=== PATIENT | male | born 1995 ===

== ENCOUNTER 2017-11-01 04:51 | Observation (INO) | payer OTHER ==
[2017-11-01] MEDS ORDERED: Albuterol 0.083% Inhal Sol (2.5 mg/3 mL) UD INH ONE ×2 (05:46→07:14)
--- NOTE | 2017-11-01 05:52 | ED PDOC ---
HPI: SOB/CHF/COPD Time Seen by Provider: 11/01/17 05:02 Chief Complaint (Nursing): Chest Pain Chief Complaint (Provider): Shortness of Breath History Per: Patient History/Exam Limitations: no limitations Onset/Duration Of Symptoms: Days (x1) Current Symptoms Are (Timing): Still Present Current Respiratory Medications: See Home Med List Additional Complaint(s): 22 year old male presents to ED with complaints of SOB and chest tightness x1 day and has a past medical history of asthma. (+) sore throat and productive cough with yellow phlegm. (-) fever. PCP: None Past Medical History Reviewed: Historical Data, Nursing Documentation, Vital Signs Vital Signs: Last Vital Signs Temp 98.3 F 11/02/17 08:19 Pulse 58 L 11/02/17 09:00 Resp 18 11/02/17 08:19 BP 152/76 H 11/02/17 08:19 Pulse Ox 98 11/02/17 08:19 - Medical History PMH: Asthma Denies: No Chronic Diseases - Surgical History Surgical History: Tonsillectomy - Family History Family History: States: Unknown Family Hx - Living Arrangements Living Arrangements: With Family - Social History Current smoker - smoking cessation education provided: No Ex-Smoker (has not smoked in the last 12 months): No Alcohol: Social Drugs: Cannabis - Home Medications Home Medications: Ambulatory Orders Medication Instructions Recorded Albuterol HFA [Ventolin HFA 90 1 puff IH Q4 PRN #1 inhaler 11/02/17 mcg/actuation (8 g)] Amoxicillin/Clavulanate [Augmentin 1 tab PO Q12 #14 tab 11/02/17 875 MG-125 MG Tab] Benzocaine/Menthol [Cepacol Sore 1 dalila PO Q3 PRN #30 dalila 11/02/17 Throat] Fluticasone/Salmeterol 250/50 1 puff IH Q12 #60 puff 11/02/17 [Advair Diskus 250/50] Methylprednisolone [Medrol Dose 4 mg PO DAILY #21 mg 11/02/17 Pack (21 tabs)] - Allergies Allergies/Adverse Reactions: Allergies Allergy/AdvReac Type Severity Reaction Status Date / Time No Known Allergies Allergy Verified 11/01/17 07:16 Curb-65 Severity Score - CURB-65 Severity Score Confusion: No Respiratory Rate greater than/equal to 30: No Systolic BP <90 or Diastolic BP less than/equal 60mmHg: No Age >64: No Curb-65 Score: 0 Percentage 30-day mortality: 0.6% Wells Criteria for PE - Wells Criteria for Pulmonary Embolism P.E is #1 Diagnosis, or Equally Likely: No Heart Rate >100: No Immobilization at least 3 days;Surgery previous 4 weeks: No Previous, objectively diagnosed PE or DVT: No Hemoptysis: No Malignancy w/treatment within 6 months, or palliative: No Total Score: 0 Review of Systems ROS Statement: Except As Marked, All Systems Reviewed And Found Negative Constitutional: Negative for: Fever ENT: Positive for: Throat Pain Cardiovascular: Positive for: Chest Pain ("chest tightness") Respiratory: Positive for: Cough, Shortness of Breath, Sputum (yellow phlegm) Physical Exam - Reviewed Nursing Documentation Reviewed: Yes Vital Signs Reviewed: Yes - Physical Exam Appears: Positive for: Non-toxic, No Acute Distress (obese) Skin: Positive for: Normal Color, Warm, Dry ENT: Positive for: Pharyngeal Erythema (mild). Negative for: Normal ENT Inspection Cardiovascular/Chest: Positive for: Regular Rate, Rhythm, Bradycardia Respiratory: Positive for: Normal Breath Sounds. Negative for: Wheezing, Respiratory Distress Gastrointestinal/Abdominal: Positive for: Normal Exam Extremity: Positive for: Normal ROM Neurologic/Psych: Positive for: Alert, Oriented. Negative for: Motor/Sensory Deficits - Laboratory Results Result Diagrams: 11/01/17 05:50 11/01/17 05:50 - ECG ECG Rhythm: Positive for: Normal QRS, Normal ST Segment, Sinus Bradycardia Rate: 45 O2 Sat by Pulse Oximetry: 99 (RA) Pulse Ox Interpretation: Normal - Radiology X-Ray: Interpreted by Me, Viewed By Pa X-Ray Interpretation: No Acute Disease Medical Decision Making Medical Decision Makin Initial impression: chest pain sore throat r/o strep r/o PNA r/o cardiac Initial plan: * Labs * Trop I * CXR * Albuterol 0.083% 2.5mg INH * Peak flow pre/post Tx * Rapid strep * Re-eval (-) Group A Beta Strep Ag CXR Reveals no infiltrates. Troponin level is normal. Nebulizer treatment ordered. Pt is bradycardiac. Pt is persistently 45 beats/min. no prior histort. Plan to admit patient for bradycardia and chest pain. pt awake and alert. in no distress. 07:12 ED provider discussed case with Dr. Drake. Patient will be admitted to observation /telemetry for chest pain and bradycardia under the care of Dr. Juliana Drake ~~~~~~~~~~~~~~~~~~~~~~~~~~~~~~~~~~~~~~~~~~~~~~~~~~~~~~~~~~~~~~~~~~~~~~~~~~~ Scribe Attestation: Documented by Bridgette Rhodes and Rommel Mota acting as scribes for Grant Higginbotham MD. Scribe Attestation: All medical record entries made by the Scribe were at my direction and personally dictated by me. I have reviewed the chart and agree that the record accurately reflects my personal performance of the history, physical exam, medical decision making, and the department course for this patient. I have also personally directed, reviewed, and agree with the discharge instructions and disposition. Disposition - Clinical Impression Clinical Impression: Bradycardia - Patient ED Disposition Is Patient to be Admitted: Yes Discussed With : Juliana Drake Doctor Will See Patient In The: Hospital - Disposition Disposition Time: 07:00 Condition: STABLE
[2017-11-01 06:05] LABS: BASO % 0.3 % (0.0-2.0); EOS # 0.2 K/uL (0.0-0.7); EOS % 2.3 % (0.0-4.0); HEMOGLOBIN 14.5 g/dL (12.0-18.0); LYMPH # 2.9 K/uL (1.0-4.3); LYMPH % 30.7 % (20.0-40.0); MEAN CORPUSCULAR HEMOGLOBIN 29.9 pg (27.0-31.0); MEAN CORPUSCULAR HGB CONC 34.4 g/dL (33.0-37.0); MEAN PLATELET VOLUME 9.5 fl (7.2-11.7); MONO # 0.9 K/uL (0.0-0.8); MONO % 9.6 % (0.0-10.0); NEUT # 5.4 K/uL (1.8-7.0); NEUT % 57.1 % (50.0-75.0); RBC 4.84 Mil/uL (4.40-5.90); RED CELL DISTRIBUTION WIDTH 13.3 % (11.5-14.5); WHITE BLOOD COUNT 9.4 K/uL (4.8-10.8)
[2017-11-01 06:13] LABS: ALB/GLOB RATIO 1.3 (1.0-2.1); ALT/SGPT 41 U/L (21-72); AST/SGOT 24 U/L (17-59); BLOOD UREA NITROGEN 15 mg/dl (9-20); CALCIUM 8.8 mg/dL (8.4-10.2); GFR AFRICAN-AMERICAN > 60; GFR NON-AFRICAN AMERICAN > 60
[2017-11-01] MEDS: Albuterol-Ipratrop 3 mg / 0.5 (3 ml) UD INH SCH ×4 (07:51→19:16)
--- NOTE | 2017-11-01 08:11 | CP.PCM.HP ---
History of Present Illness - History of Present Illness History of Present Illness: Chief Complaint: Chest tightness, cough HPI: 22 y/o male with PMH of Asthma, came in [facility] of chest tightness and cough. Patient states that he was fine the past few days until about 2pm yesterday when he started having sore throat and cough productive of yellowish phlegm. Early this morning felt started having some wheezing , mild shortness of breath and some chest tightness so he went to the ED. He denies fever, no chills, no sick contacts. Denies any recent travel. He smoke a joint of Marijuana yesterday and some some Alcoholic drink on Wednesday however he denies any other drugs. 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 He also bought a bike a month ago and has been using this a means of transport , biking about 2-5 miles per day. Present on Admission - Present on Admission Any Indicators Present on Admission: No Review of Systems - Review of Systems All systems: reviewed and no additional remarkable complaints except - Constitutional Constitutional: Weight Gain. absent: Chills, Fever, Headache - EENT Eyes: absent: Blurred Vision, Change in Vision Ears: absent: Ear Discharge, Ear Pain, Tinnitus, Dizziness Nose/Mouth/Throat: Sore Throat - Cardiovascular Cardiovascular: Chest Pain, Dyspnea. absent: Pain Radiating to Arm/Neck/Jaw, Lightheadedness, Orthopnea, Palpitations, Paroxysmal Nocturnal Dyspnea, Pedal Edema - Respiratory Respiratory: Cough, Dyspnea, Wheezing, Snoring, Change in Mucous Color - Gastrointestinal Gastrointestinal: absent: Vomiting - Genitourinary Genitourinary: absent: Difficulty Urinating, Dysuria, Hematuria - Musculoskeletal Musculoskeletal: absent: Abnormal Gait, Arthralgias, Back Pain, Muscle Weakness - Integumentary Integumentary: absent: Pruritus, Rash, Sores - Neurological Neurological: absent: Abnormal Gait, Confusion, Focal Weakness, Loss of Vision - Psychiatric Psychiatric: absent: Anxiety, Behavioral Changes, Confusion, Depression, Suicidal Ideation - Endocrine Endocrine: absent: Polydipsia, Polyphagia, Polyuria - Hematologic/Lymphatic Hematologic: absent: Easy Bleeding, Easy Bruising Past Patient History - Tetanus Immunizations Tetanus Immunization: Unknown - Past Medical History & Family History Past Medical History?: Yes Past Family History: Reviewed and not pertinent Pertinent Family History: Father- Alcoholism - Past Social History Smoking Status: smokes Marijuana occasionally Chewing Tobacco Use: No Cigar Use: No Occupation: unemployed Alcohol: Social Drugs: Cannabis Home Situation {Lives}: With Family Domestic Violence: Negative - CARDIAC Hx Cardiac Disorders: No - PULMONARY Hx Asthma: Yes - NEUROLOGICAL Hx Neurological Disorder: No - ENDOCRINE/METABOLIC Hx Endocrine Disorders: No - HEMATOLOGICAL/ONCOLOGICAL Hx Blood Disorders: No - INTEGUMENTARY Hx Dermatological Problems: No - MUSCULOSKELETAL/RHEUMATOLOGICAL Hx Musculoskeletal Disorders: No - GASTROINTESTINAL Hx Gastrointestinal Disorders: No - GENITOURINARY/GYNECOLOGICAL Hx Genitourinary Disorders: No - PSYCHIATRIC Hx Substance Use: Yes (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 Negative for: Meningismus - Respiratory Exam Respiratory Exam: Rhonchi, Wheezes. absent: Respiratory Distress - Cardiovascular Exam Cardiovascular Exam: Bradycardia, Irregular Rhythm, +S1, +S2 - GI/Abdominal Exam GI & Abdominal Exam: Normal Bowel Sounds, Soft. absent: Tenderness - Extremities Exam Extremities exam: Positive for: full ROM, normal capillary refill, normal inspection, pedal pulses present. Negative for: calf tenderness, pedal edema - Back Exam Back exam: FULL ROM, NORMAL INSPECTION. absent: CVA tenderness (L), CVA tenderness (R), paraspinal tenderness, vertebral tenderness - Neurological Exam Neurological exam: Alert, CN II-XII Intact, Oriented x3, Reflexes Normal - Psychiatric Exam Psychiatric exam: Normal Affect, Normal Mood - Skin Skin Exam: Dry, Intact, Normal Color, Warm Results - Vital Signs Recent Vital Signs: Last Vital Signs Temp 98.4 F 11/01/17 08:07 Pulse 46 L 11/01/17 08:07 Resp 18 11/01/17 08:07 BP 136/79 11/01/17 08:07 Pulse Ox 97 11/01/17 08:07 - Labs Result Diagrams: 11/01/17 05:50 11/01/17 05:50 Labs: Laboratory Results - last 24 hr 11/01/17 11/01/17 11/01/17 05:50 05:50 05:50 WBC 9.4 RBC 4.84 Hgb 14.5 Hct 42.1 MCV 87.0 MCH 29.9 MCHC 34.4 RDW 13.3 Plt Count 192 MPV 9.5 Neut % (Auto) 57.1 Lymph % (Auto) 30.7 [place] % (Auto) 9.6 Eos % (Auto) 2.3 Baso % (Auto) 0.3 Neut # (Auto) 5.4 Lymph # (Auto) 2.9 [place] # (Auto) 0.9 H Eos # (Auto) 0.2 Baso # (Auto) 0.0 Sodium 138 Potassium 3.9 Chloride 100 Carbon Dioxide 29 Anion Gap 13 BUN 15 Creatinine 0.9 Est GFR ( Amer) > 60 Est GFR (Non-Af Amer) > 60 Random Glucose 107 Calcium 8.8 Total Bilirubin 1.0 AST 24 ALT 41 Alkaline Phosphatase 87 Troponin I < 0.0120 Total Protein 7.2 Albumin 4.0 Globulin 3.2 Albumin/Globulin Ratio 1.3 Grp A Beta Strep Ag Negative - EKG Data EKG Interpreted by: Myself EKG shows normal: Sinus rhythm Rate: Bradycardia - Imaging and Cardiology Chest x-ray Status: Image reviewed by me Additional comment: NO infiltrate Assessment & Plan (1) Bradycardia Status: Acute (2) Upper respiratory infection Status: Acute (3) Asthma exacerbation Status: Acute (4) Obesity, Class II, BMI 35-39.9 Status: Chronic (5) DVT prophylaxis Status: Acute - Assessment and Plan (Free Text) Assessment: 22 y/o male with hx of Mild INtermittent Asthma , came in bec of cough, wheezing , SOB and CHest tightness. Found to be Bradycardic in the ED. Admitted for Observation for Asthma exacerbation and Bradycardia (1) Bradycardia Status: Acute EKG: Sinus Bradycardia, some irregularity in rhythm TRop x1 negative Has Chest tightness but prob due to Asthma exacerbation will check TSH, Drug Tox SCreen Observe in Telemetry Cardio consult - Dr Auguste (2) Upper respiratory infection Status: Acute start Augmentin 875 mg PO bid (3) Asthma exacerbation , hx of Mild Intermittent Asthma Status: Acute last attack was 2 yrs ago start IV Solumedrol 125 mg stat then 40 mg daily Duoneb q 4 start Advair (4) Obesity, Class II, BMI 35-39.9 Status: Chronic counseled pt on diet and exercise (5) DVT prophylaxis Status: Acute SCD encourage ambulation Decision To Admit - Pt Status Changed To: Hospital Disposition Of: Observation - . Bed Request Type: Telemetry Admitting Physician: Juliana Drake
[2017-11-01 08:36] LABS: T4 7.14 ug/dl (5.5-11.0)
--- NOTE | 2017-11-01 09:28 | RAD ---
HISTORY: chest pain COMPARISON: No prior. TECHNIQUE: Chest PA and lateral FINDINGS: LUNGS: No active pulmonary disease. PLEURA: No significant pleural effusion identified. No pneumothorax apparent. CARDIOVASCULAR: Normal. OSSEOUS STRUCTURES: No significant abnormalities. VISUALIZED UPPER ABDOMEN: Normal. OTHER FINDINGS: None. IMPRESSION: No acute cardiopulmonary disease appreciated.
[2017-11-01] MEDS ORDERED: Pneumococcal 23-Valent Vaccine IM ONE (09:48)
[2017-11-01] MEDS: Fluticasone-Salmeterol 250-50mcg Diskus IH SCH ×2 (12:46→20:53)
[2017-11-01] MEDS: Amoxicillin-Clav 875-125 mg Tab PO SCH ×2 (12:47→20:52)
[2017-11-01] MEDS ORDERED: Benzocaine/Menthol (Cepacol) Lozenge PO PRN (18:21)
[2017-11-01 23:47] LABS: BARBITURATES, UR NEGATIVE (NEGATIVE); BENZODIAZEPINES, UR NEGATIVE (NEGATIVE); OPIATES, UR NEGATIVE (NEGATIVE); PHENCYCLIDINE, UR NEGATIVE (NEGATIVE)
[2017-11-02 00:05] VITALS: RESP 18
[2017-11-02] MEDS: Albuterol-Ipratrop 3 mg / 0.5 (3 ml) UD INH SCH ×4 (00:26→11:04)
[2017-11-02 05:43] LABS: HDL CHOLESTEROL 47 MG/DL (30-70)
[2017-11-02 05:54] LABS: LDL CHOLESTEROL 102 mg/dL (0-129)
[2017-11-02 08:20] VITALS: BP 152/76; TEMP 98.3
[2017-11-02] MEDS: Amoxicillin-Clav 875-125 mg Tab PO SCH (08:34)
[2017-11-02] MEDS: Fluticasone-Salmeterol 250-50mcg Diskus IH SCH (08:34)
[2017-11-02] MEDS ORDERED: MethylPREDNISolone 40 mg Vial IVP SCH (09:00)
[2017-11-02] MEDS ORDERED: methylPREDNISolone 40 MG in Sodium Chloride 0.9% 50 ML IVPB SCH (09:00)
--- NOTE | 2017-11-02 09:11 | CP.PCM.DIS ---
Provider - Provider Date of Admission: 11/01/17 07:13 Attending physician: Juliana Drake MD Time Spent in preparation of Discharge (in minutes): 10 Hospital Course - Lab Results Lab Results: Micro Results 11/01/17 05:50 Throat Group A Strep Throat Culture - Final NO BETA STREP GROUP A ISOLATED. Most Recent Lab Values WBC 9.4 K/uL (4.8-10.8) 11/01/17 05:50 RBC 4.84 Mil/uL (4.40-5.90) 11/01/17 05:50 Hgb 14.5 g/dL (12.0-18.0) 11/01/17 05:50 Hct 42.1 % (35.0-51.0) 11/01/17 05:50 MCV 87.0 fl (80.0-94.0) 11/01/17 05:50 MCH 29.9 pg (27.0-31.0) 11/01/17 05:50 MCHC 34.4 g/dL (33.0-37.0) 11/01/17 05:50 RDW 13.3 % (11.5-14.5) 11/01/17 05:50 Plt Count 192 K/uL (130-400) 11/01/17 05:50 MPV 9.5 fl (7.2-11.7) 11/01/17 05:50 Neut % (Auto) 57.1 % (50.0-75.0) 11/01/17 05:50 Lymph % (Auto) 30.7 % (20.0-40.0) 11/01/17 05:50 [place] % (Auto) 9.6 % (0.0-10.0) 11/01/17 05:50 Eos % (Auto) 2.3 % (0.0-4.0) 11/01/17 05:50 Baso % (Auto) 0.3 % (0.0-2.0) 11/01/17 05:50 Neut # (Auto) 5.4 K/uL (1.8-7.0) 11/01/17 05:50 Lymph # (Auto) 2.9 K/uL (1.0-4.3) 11/01/17 05:50 [place] # (Auto) 0.9 K/uL (0.0-0.8) H 11/01/17 05:50 Eos # (Auto) 0.2 K/uL (0.0-0.7) 11/01/17 05:50 Baso # (Auto) 0.0 K/uL (0.0-0.2) 11/01/17 05:50 Sodium 138 mmol/l (132-148) 11/01/17 05:50 Potassium 3.9 MMOL/L (3.6-5.0) 11/01/17 05:50 Chloride 100 mmol/L (98-107) 11/01/17 05:50 Carbon Dioxide 29 mmol/L (22-30) 11/01/17 05:50 Anion Gap 13 (10-20) 11/01/17 05:50 BUN 15 mg/dl (9-20) 11/01/17 05:50 Creatinine 0.9 mg/dl (0.8-1.5) 11/01/17 05:50 Est GFR ( Amer) > 60 11/01/17 05:50 Est GFR (Non-Af Amer) > 60 11/01/17 05:50 Random Glucose 107 mg/dL (75-110) 11/01/17 05:50 Calcium 8.8 mg/dL (8.4-10.2) 11/01/17 05:50 Total Bilirubin 1.0 mg/dl (0.2-1.3) 11/01/17 05:50 AST 24 U/L (17-59) 11/01/17 05:50 ALT 41 U/L (21-72) 11/01/17 05:50 Alkaline Phosphatase 87 U/L (38-126) 11/01/17 05:50 Troponin I < 0.0120 ng/mL (0.00-0.120) 11/01/17 05:50 Total Protein 7.2 G/DL (6.3-8.2) 11/01/17 05:50 Albumin 4.0 g/dL (3.5-5.0) 11/01/17 05:50 Globulin 3.2 gm/dL (2.2-3.9) 11/01/17 05:50 Albumin/Globulin Ratio 1.3 (1.0-2.1) 11/01/17 05:50 Triglycerides 79 mg/DL (0-149) 11/02/17 04:20 Cholesterol 177 mg/dL (0-199) 11/02/17 04:20 LDL Cholesterol Direct 102 mg/dL (0-129) 11/02/17 04:20 HDL Cholesterol 47 MG/DL (30-70) 11/02/17 04:20 Thyroxine (T4) 7.14 ug/dl (5.5-11.0) 11/01/17 07:30 TSH 3rd Generation 3.31 mIU/ML (0.46-4.68) 11/01/17 07:30 Urine Opiates Screen Negative (NEGATIVE) 11/01/17 22:30 Urine Methadone Screen Negative (NEGATIVE) 11/01/17 22:30 Ur Barbiturates Screen Negative (NEGATIVE) 11/01/17 22:30 Ur Phencyclidine Scrn Negative (NEGATIVE) 11/01/17 22:30 Ur Amphetamines Screen Negative (NEGATIVE) 11/01/17 22:30 U Benzodiazepines Scrn Negative (NEGATIVE) 11/01/17 22:30 U Oth Cocaine Metabols Negative (NEGATIVE) 11/01/17 22:30 U Cannabinoids Screen Positive (NEGATIVE) H 11/01/17 22:30 Grp A Beta Strep Ag Negative (NEGATIVE) 11/01/17 05:50 - Hospital Course Hospital Course: 22 y/o male with PMH of Asthma,( last attack 2 years ago ) came in because of chest tightness and cough. Patient states that he was fine the past few days until about 2pm yesterday when he started having sore throat and cough productive of yellowish phlegm. Early this morning felt started having some wheezing , mild shortness of breath and some chest tightness so he went to the ED. He denies fever, no chills, no sick contacts. Denies any recent travel. He smoke a joint of Marijuana yesterday and some Alcoholic drink on Wednesday however he denies any other drugs. 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 He also bought a bike a month ago and has been using this as means of transport , biking about 2-5 miles per day. IN Er he was found to have some bradycardia with HR as low as 54 . He was placed under observation in telemetry for bradycardia and Asthma exacerbation with URI. He wsa started on Solumedrol IV , Duonebs anD augmentin PO empirically. Cardiology consulted for v=bradycardia and case discussedw kashif Auguste. Patient is stable with no symptoms of bradycardia so is claered from cardiology for discharge. Respiratory status has improved since admission , saturating 100- 98 % in Ra with no respiratory distress. Still with some minimal coughing spells and yellowish sputum production . CXR showed no infiltrate and WBC count 9 K afebrile Will discharge patient on PO augmentin , Mucinex Po ,Albuterol PRN . 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 Will discharge patient home on stable conditions. 1. Asthma exacerbation , hx of Mild Intermittent Asthma Acute last attack was 2 yrs ago CXR showed no infiltrate given IV Solumedrol 125 mg and then 40 mg daily Duoneb q 4 started Advair Will d/c home on Medrol pack Will prescvribe Albuterol pump PRN 2. Bradycardia Acute EKG: Sinus Bradycardia, some irregularity in rhythm TRop x negative Has Chest tightness but prob due to Asthma exacerbation Drug Tox SCreen positive for marijuana Observed in Telemetry and cardiology consultesd. HR as low as 54 in monitor with no symptoms patient cleared for discharge 3. Upper respiratory infection Acute on Augmentin 875 mg PO bid 4. Obesity, Class II, BMI 35-39.9 Chronic counseled pt on diet and exercise 5. Marijuane use counselled patient 6. DVT prophylaxis encourage ambulation SCD Discharge Exam - Head Exam Head Exam: ATRAUMATIC, NORMAL INSPECTION, NORMOCEPHALIC - Eye Exam Eye Exam: EOMI, Normal appearance, PERRL Pupil Exam: NORMAL ACCOMODATION - ENT Exam ENT Exam: Mucous Membranes Moist, Normal Exam - Neck Exam Neck exam: Full Rom, Normal Inspection - Respiratory Exam Respiratory Exam: Clear to PA & Lateral, Wheezes (to right lower base ), NORMAL BREATHING PATTERN. absent: Prolonged Expiratory Phase, Respiratory Distress - Cardiovascular Exam Cardiovascular Exam: REGULAR RHYTHM, RRR, +S1, +S2. absent: JVD - Rectal Exam Rectal Exam: Deferred - Extremities Exam Extremities exam: normal capillary refill, normal inspection, pedal pulses present - Back Exam Back exam: NORMAL INSPECTION - Neurological Exam Neurological exam: Alert, CN II-XII Intact, Oriented x3 - Psychiatric Exam Psychiatric exam: Normal Affect, Normal Mood - Skin Skin Exam: Dry, Intact, Normal Color, Warm Discharge Plan - Discharge Medications Prescriptions: Albuterol HFA [Ventolin HFA 90 mcg/actuation (8 g)] 1 puff IH Q4 PRN #1 inhaler PRN Reason: Wheezing Amoxicillin/Clavulanate [Augmentin 875 MG-125 MG Tab] 1 tab PO Q12 #14 tab Benzocaine/Menthol [Cepacol Sore Throat] 1 dalila PO Q3 PRN #30 dalila PRN Reason: Sore Throat Fluticasone/Salmeterol 250/50 [Advair Diskus 250/50] 1 puff IH Q12 #60 puff Methylprednisolone [Medrol Dose Pack (21 tabs)] 4 mg PO DAILY #21 mg - Follow Up Plan Condition: STABLE Disposition: HOME/ ROUTINE Patient education suggested?: Yes Instructions: Asthma, Adult (DC) Additional Instructions: Follow up with PMD
--- NOTE | 2017-11-02 09:18 | CP.PCM.CON ---
History of Present Illness - History of Present Illness History of Present Illness: This 22-year-old man who has been chronically overweight came into the hospital complaining of a sore throat and a sensation of asthma. The patient gives history of having been asthmatic until 2 years back and had used broncho-dilators sprays for relief in the past. He has not required them for last 2 years. Recently following a cold he has been complaining of a productive cough and occasional wheezing. He came to the emergency room because of a scratchy throat and was HER to have sinus bradycardia and was kept overnight for observation. The patient denies taking any medications including any eyedrops for glaucoma. He denies any lightheadedness or syncope or near syncope or palpitations. The patient has recently purchased a bicycle and rides it for up to 7-8 miles without any difficulty. Physical examination shows a young man who is able to carry on a conversation lying flat in bed telemetry shows sinus rhythm with heart rates as low as 44 during sleep but otherwise a physiological variation of his heart rate. His blood pressure was 120/74 mmHg. His pedal pulses were well felt. Jugular venous pressure was not elevated and there was no edema over his lower extremity. Extremities were warm and nailbeds were pink there was no central or peripheral cyanosis. In upright posture his blood pressure did not change and the patient did not have any symptoms. Thyroid was not enlarged. The first and second heart sounds were normal. There was a brief apical systolic murmur there was no S3 gallop and there were no rales. Abdomen was soft and liver and spleen are not palpable. His electrocardiogram at admission in the emergency room showed sinus rhythm at a bradycardic rate with mild sinus arrhythmia. And electro-cardial gram this morning shows sinus rhythm but otherwise a normal pattern. His lab data including thyroid studies were normal. Impression: Sinus bradycardia no evidence of hypothyroidism. The patient is not symptomatic and no intervention need be undertaken at this juncture. He can be followed as an outpatient. Past Patient History - Tetanus Immunizations Tetanus Immunization: Unknown - Past Medical History & Family History Past Medical History?: Yes Past Family History: Reviewed and not pertinent - Past Social History Smoking Status: smokes Marijuana occasionally Chewing Tobacco Use: No Cigar Use: No Occupation: unemployed Alcohol: Social Drugs: Cannabis Home Situation {Lives}: With Family Domestic Violence: Negative - CARDIAC Hx Cardiac Disorders: No - PULMONARY Hx Asthma: Yes - NEUROLOGICAL Hx Neurological Disorder: No - HEENT Hx HEENT Problems: No Hx Blind: No Hx Cataracts: No Hx Deafness: No Hx Difficulty Chewing: No Hx Epistaxis: No Hx Glaucoma: No Hx Macular Degeneration: No Hx Sinusitis: No - RENAL Hx Chronic Kidney Disease: No Hx Dialysis: No Hx Kidney Stones: No Hx Neurogenic Bladder: No Hx Pyelonephritis: No Hx Renal (Kidney) Cancer: No Hx Renal Failure: No - ENDOCRINE/METABOLIC Hx Endocrine Disorders: No - HEMATOLOGICAL/ONCOLOGICAL Hx Blood Disorders: No - INTEGUMENTARY Hx Dermatological Problems: No - MUSCULOSKELETAL/RHEUMATOLOGICAL Hx Musculoskeletal Disorders: No - GASTROINTESTINAL Hx Gastrointestinal Disorders: No - GENITOURINARY/GYNECOLOGICAL Hx Genitourinary Disorders: No - PSYCHIATRIC Hx Substance Use: Yes (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) - SURGICAL HISTORY Hx Tonsillectomy: Yes - ANESTHESIA Hx Anesthesia: Yes Hx Anesthesia Reactions: No Meds Allergies/Adverse Reactions: Allergies Allergy/AdvReac Type Severity Reaction Status Date / Time No Known Allergies Allergy Verified 11/01/17 07:16 - Medications Medications: Current Medications Albuterol/Ipratropium (Duoneb 3 Mg/0.5 Mg (3 Ml) Ud) 3 ml INH RQ4 [facility] Last Admin: 11/02/17 07:30 Dose: 3 ml Amoxicillin/Clavulanate Potassium (Augmentin 875 Mg-125 Mg Tab) 1 tab PO Q12 KENNETH PRN Reason: Protocol Last Admin: 11/02/17 08:34 Dose: 1 tab Benzocaine/Menthol (Cepacol Sore Throat) 1 dalila PO Q3 PRN PRN Reason: Sore Throat Methylprednisolone (Solu-Medrol) 40 mg IVP DAILY [facility] Last Admin: 11/02/17 08:35 Dose: 40 mg Fluticasone/Salmeterol (Advair Diskus 250/50) 1 puff IH Q12 [facility] Last Admin: 11/02/17 08:34 Dose: 1 inhaler Results - Vital Signs Recent Vital Signs: Last Vital Signs Temp 98.3 F 11/02/17 08:19 Pulse 65 11/02/17 08:19 Resp 18 11/02/17 08:19 BP 152/76 H 11/02/17 08:19 Pulse Ox 98 11/02/17 08:19 - Labs Result Diagrams: 11/01/17 05:50 11/01/17 05:50 Labs: Laboratory Results - last 24 hr 11/01/17 11/02/17 22:30 04:20 Triglycerides 79 Cholesterol 177 LDL Cholesterol Direct 102 HDL Cholesterol 47 Urine Opiates Screen Negative Urine Methadone Screen Negative Ur Barbiturates Screen Negative Ur Phencyclidine Scrn Negative Ur Amphetamines Screen Negative U Benzodiazepines Scrn Negative U Oth Cocaine Metabols Negative U Cannabinoids Screen Positive H
--- NOTE | 2017-11-02 10:04 | CARD ---
APPROVED REPORT EKG Measurement Heart [id number] ID [id number] <Conclusion> Sinus bradycardia Nonspecific ST abnormality Abnormal ECG
[2017-11-04 02:39] VITALS: PULSE 45; O2SAT 99
== END 2017-11-02 11:52 | disposition home or self-care (01) ==
LOC: H.ER 04:51 → H.ERHOLD 07:13 → H.TEL 08:33
PROVIDERS: ADMIT Internal Medicine; ATTEND Internal Medicine
DX: J45.21 Mild intermittent asthma with (acute) exacerbation (principal); E66.9 Obesity, unspecified; F12.90 Cannabis use, unspecified, uncomplicated; J02.9 Acute pharyngitis, unspecified; J06.9 Acute upper respiratory infection, unspecified; R00.1 Bradycardia, unspecified; Z23 Encounter for immunization
CPT/HCPCS: 36415; 71046; 80053; 80061; 80324; 80345; 80346; 80349; 80353; 80358; 80361; 83992; 84436; 84443; 84484; 85025; 87070; 87430; 90471; 90732; 93005; 94640; 99285; G0378; J2920; J2930

== ENCOUNTER 2018-04-25 05:31 | Emergency (ER) | payer OTHER ==
[2018-04-25 05:46] VITALS: BMI 42.2
--- NOTE | 2018-04-25 06:16 | ED PDOC ---
HPI: General Adult Time Seen by Provider: 04/25/18 05:42 Chief Complaint (Nursing): GI Problem Chief Complaint (Provider): constipation History Per: Patient History/Exam Limitations: no limitations Onset/Duration Of Symptoms: Days (x2) Additional Complaint(s): Joe Morse is a 23 year old male, with no significant past medical history, who presents to the emergency department complaining of constipation onset for x2 days. Patient states last night he was straining to have a bowel movement and developed rectal bleeding. Patient states he had it last night and this morning. He is also complaining of trouble urinating associated with a sense of rectal pressure but denies any fever, chills, nausea, vomiting, shortness of breath and chest pain. No further medical complaints. PMD: None provided. Past Medical History Reviewed: Historical Data, Nursing Documentation, Vital Signs Vital Signs: Last Vital Signs Temp 98.9 F 04/25/18 05:46 Pulse 55 L 04/25/18 05:46 Resp 18 04/25/18 05:46 BP 159/88 H 04/25/18 05:46 Pulse Ox 98 04/25/18 05:46 - Medical History PMH: Asthma Denies: Alzheimer's Disease, Anemia, Anxiety, Arthritis, Atrial Fibrillation, Bipolar Disorder, Bronchitis, CAD, Cardia Arrhythmia, CHF, COPD, Crohn's Dise ase, Dementia, Depression, Diverticulitis, Emphysema, Fractures, Gastritis, Gall Bladder Disease, HIV, HTN, Hypercholesterolemia, Hyperthyroidism, Hypothyroidism, Kidney Stones, Migraine, Mitral Valve Prolapse, Multiple Sclerosis, Osteoporosis, Pancreatitis, Paranoia, Parkinson's Disease, Peripheral Edema, Pneumonia, Post Traumatic Stress Disorder, Pulmonary Embolism, Chronic Kidney Disease, Rheumatoid Arthritis, Schizophrenia, Seizures, Sickle Cell Disease, Sexually Transmitted Disease, Sleep Apnea, TIA - Surgical History Surgical History: Tonsillectomy Denies: Appendectomy, CABG, Carotid Endarterectomy, Cholecystectomy, Coronary Stent, Pacemaker - Family History Family History: States: Unknown Family Hx - Home Medications Home Medications: Ambulatory Orders Medication Instructions Recorded Methylprednisolone [Medrol Dose 4 mg PO DAILY #21 mg 11/02/17 Pack (21 tabs)] RX: Albuterol HFA [Ventolin HFA 90 1 puff IH Q4 PRN #1 inhaler 11/02/17 mcg/actuation (8 g)] RX: Amoxicillin/Clavulanate 1 tab PO Q12 #14 tab 11/02/17 [Augmentin 875 MG-125 MG Tab] RX: Benzocaine/Menthol [Cepacol 1 dalila PO Q3 PRN #30 dalila 11/02/17 Sore Throat] RX: Fluticasone/Salmeterol 250/50 1 puff IH Q12 #60 puff 11/02/17 [Advair Diskus 250/50] Docusate Sodium [Colace] 100 mg PO BID PRN #14 capsule 04/25/18 - Allergies Allergies/Adverse Reactions: Allergies Allergy/AdvReac Type Severity Reaction Status Date / Time No Known Allergies Allergy Verified 04/25/18 05:46 Review of Systems ROS Statement: Except As Marked, All Systems Reviewed And Found Negative Constitutional: Negative for: Fever, Chills Gastrointestinal: Positive for: Abdominal Pain, Constipation, Hematochezia. Negative for: Nausea, Vomiting, Diarrhea Genitourinary Male: Positive for: Incontinence Physical Exam - Reviewed Nursing Documentation Reviewed: Yes Vital Signs Reviewed: Yes - Physical Exam Appears: Positive for: Non-toxic, No Acute Distress Head Exam: Positive for: ATRAUMATIC, NORMAL INSPECTION, NORMOCEPHALIC Skin: Positive for: Normal Color, Warm, Dry Eye Exam: Positive for: Normal appearance, EOMI, PERRL Neck: Positive for: Normal, Painless ROM Cardiovascular/Chest: Positive for: Regular Rate, Rhythm. Negative for: Murmur Respiratory: Positive for: Normal Breath Sounds. Negative for: Respiratory Distress Gastrointestinal/Abdominal: Positive for: Tenderness (suprapubic ) Back: Positive for: Normal Inspection. Negative for: L CVA Tenderness, R CVA Tenderness, Vertebral Tenderness Rectal: Negative for: Hemorrhoids, Mass, Other (active bleeding. Iap Displays Analyst: RODRIGO Mccarty) Extremity: Positive for: Normal ROM (upper and lower extremities). Negative for: Deformity Neurologic/Psych: Positive for: Alert, Oriented - ECG O2 Sat by Pulse Oximetry: 98 (RA) Pulse Ox Interpretation: Normal Medical Decision Making Medical Decision Making: Time: 541 Initial Impression: 23 y/o male with constipation Initial Plan: --Urine dipstick --Abdomen w/ Chest [RAD] --Urinalysis --Reevaluation 07:00 -Patient will be signed out to Dr. Higginbotham pending reevaluation. ----- Scribe Attestation: Documented by Kenney Mccartney, acting as a scribe for Colt Flores MD. Provider Scribe Attestation: All medical record entries made by the Scribe were at my direction and personally dictated by me. I have reviewed the chart and agree that the record accurately reflects my personal performance of the history, physical exam, medical decision making, and the department course for this patient. I have also personally directed, reviewed, and agree with the discharge instructions and disposition. Disposition - Clinical Impression Clinical Impression: Constipation - Disposition Disposition: Transfer of Care Disposition Time: 07:00 Condition: STABLE Additional Instructions: follow up with your primary doctor in 1-2 days return to the ED with any worsening or concerning symptoms Prescriptions: Docusate Sodium [Colace] 100 mg PO BID PRN #14 capsule PRN Reason: Constipation Instructions: Constipation, Adult (DC) Forms: [employer] (Emirati) Patient Signed Over To: Grant Higginbotham
--- NOTE | 2018-04-25 07:23 | ED PDOC ---
- ECG O2 Sat by Pulse Oximetry: 98 (RA) Pulse Ox Interpretation: Normal Medical Decision Making Medical Decision Making: Time: 0700 Patient endorsed to provider by Dr. Flores, pending bowel movement. Patient had a bowel movement at 0912AM and feels improved Scribe Attestation: Documented by Evelio Senior, acting as a scribe for Grant Higginbotham MD. Provider Scribe Attestation: All medical record entries made by the Scribe were at my direction and personally dictated by me. I have reviewed the chart and agree that the record accurately reflects my personal performance of the history, physical exam, medical decision making, and the department course for this patient. I have also personally directed, reviewed, and agree with the discharge instructions and disposition. Disposition - Clinical Impression Clinical Impression: Constipation - POA Present On Arrival: None - Disposition Disposition: Routine/Home Disposition Time: 09:25 Condition: IMPROVED Additional Instructions: follow up with your primary doctor in 1-2 days return to the ED with any worsening or concerning symptoms Prescriptions: Docusate Sodium [Colace] 100 mg PO BID PRN #14 capsule PRN Reason: Constipation Instructions: Constipation, Adult (DC) Forms: [employer] (Montenegrin)
[2018-04-25 09:02] LABS: URINE BILIRUBIN NEGATIVE (NEGATIVE); URINE BLOOD NEGATIVE (NEGATIVE); URINE CLARITY SLIGHTY-CLOUDY (Clear); URINE COLOR YELLOW (YELLOW); URINE GLUCOSE (UA) NEG (Normal); URINE LEUKOCYTE ESTERASE NEG Leu/uL (Negative); URINE PROTEIN NEGATIVE (NEGATIVE); URINE UROBILINOGEN 0.2-1.0 mg/dL (0.2-1.0)
[2018-04-25 09:24] VITALS: BP 135/80; PULSE 75; RESP 16; TEMP 98.1
--- NOTE | 2018-04-25 12:25 | RAD ---
Date of service: 04/25/2018 HISTORY: Constipation, rectal bleeding COMPARISON: 11/01/2017. Two-view chest FINDINGS: BOWEL: Constipation without fecal impaction or obstruction. BONES: Normal. OTHER FINDINGS: None. IMPRESSION: Constipation without obstruction. No visible free air
[2018-04-25 15:55] VITALS: O2SAT 98
== END 2018-04-25 09:24 | disposition home or self-care (01) ==
LOC: H.ER 05:31
DX: K59.00 Constipation, unspecified (principal)